=== PATIENT | female | born 1970 | race Caucasian/White ===

== ENCOUNTER → 2018-06-03 | Day surgery (SDC) | payer OTHER ==
[~2018-06-03] MED LIST: INCRUSE ELLI62.5 MCG INH; NORCO 5-325 TA1 EACH PO
--- NOTE | ~2018-06-03 | OP ---
[address] [address] OPERATIVE REPORT Name: KATIE JEFF Room: [facility]..#: [id number] Admission: 06/03/18 Attend Phys: Margi Coker MD Discharge: Date of : 68 Report #: [id number] THIS REPORT FOR: //name// CC: Margi Blanc DATE OF SERVICE: 06/03/2018 PREOPERATIVE DIAGNOSES: Biliary colic, cholelithiasis. POSTOPERATIVE DIAGNOSIS: Chronic cholecystitis. OPERATIVE PROCEDURE: Laparoscopic cholecystectomy. ANESTHESIA: General endotracheal with 0.5% Marcaine infiltrated in the wound site. OPERATIVE FINDINGS: Gallbladder with multiple stones and inflamed gallbladder wall. OPERATIVE PROCEDURE: The patient was placed under general endotracheal anesthesia, and the abdomen was prepped and draped in a sterile fashion. A timeout was taken. IV antibiotics administered. We began by infiltrating in the infraumbilical crease transversely with 0.5% Marcaine and made a transverse incision there with a #15 scalpel blade. The edges were then lifted up with 2 Adson forceps and cautery. It was used to dissect through the subcutaneous tissue down to the anterior abdominal wall. That abdominal wall was lifted with 2 Kochers and cleared with cautery and transected transversely with a #15 scalpel blade. Blunt dissection with a hemostat into the peritoneal cavity was accomplished without injury to underlying abdominal viscera. A 0 PDS was looped to the incision site and a size 12 applied medical Armand trocar was placed into the peritoneal cavity. Balloon deployed and secured at the skin. Insufflation with carbon dioxide to 5 L was completed, and a 5-mm 30-degree scope was inserted. The abdomen was inspected under direct visualization in the subcostal margin in the epigastric region, midclavicular and anterior axillary line. Infiltration with 0.5% Marcaine solution. Three small stab incisions in the upper abdomen and placed three bladeless applied, medical balloon deployed. Trocars were placed and secured at the skin. The patient then was placed in reverse Trendelenburg left lateral decubitus position, and the gallbladder was grasped with two vantage points and tented towards the diaphragm. A slow meticulous dissection at the base of the gallbladder carefully dissected out the cystic duct and cystic artery and placed 3 Hemoclips across both structures and divided it with laparoscopic scissors leaving 2 in the patient and 1 on the gallbladder. Handheld cautery was then used to dissect the gallbladder off the anterior surface of the liver. During the dissection, we got into the gallbladder wall and some mucinous bile was escaped [place] [address] OPERATIVE REPORT Name: KATIE JEFF Room: [facility] M.R.#: [id number] Admission: 06/03/18 Attend Phys: Margi Coker MD Discharge: Date of : 68 Report #: [id number] suction aspirator. Once the gallbladder was freed from its attachment, I changed the position of the camera to the epigastric port and through the umbilical port. An Endopouch was fed into the abdomen. The gallbladder placed in that pouch, and the pouch was closed. The pouch was fed up into the umbilical wound and retrieved without incident. I then inspected the right upper quadrant, irrigated and aspirated any free fluid at the base of the gallbladder. There was no bleeding and the clips remained in place. Pneumoperitoneum was released, and the patient was placed back in neutral position. After the trocars were all removed, the 0 PDS at the umbilical stalk was tied and infiltrated with 0.5% Marcaine and the remaining incisions were closed with buried 4-0 PDS sutures and sealed with Dermabond. ESTIMATED BLOOD LOSS: 5 mL. All sponge, instrument counts correct. SPECIMENS: Gallbladder to pathology. The patient was extubated and returned to recovery in stable condition. By: 1326 Lucila Coker MD /nt
--- NOTE | 2018-06-03 13:22 | H ---
[address] [address] HISTORY AND PHYSICAL Name: KATIE JEFF Room: [facility]..#: [id number] Admission: 06/03/18 Attend Phys: Margi Coker MD Discharge: Date of : 68 Report #: [id number] THIS REPORT FOR: //name// CC: Margi Blanc The patient to be treated on 06/03/2018. ADMITTING DIAGNOSIS: Symptomatic biliary colic. HISTORY OF PRESENT ILLNESS: The patient is a 48-year-old white female, who presented to the Emergency Department with complaints of right upper quadrant pain and chest pain. She was worked up for both entities and was found to have no cardiac disease, but on ultrasound, cholelithiasis. She was dismissed and referred for surgical management. PAST MEDICAL HISTORY: COPD. CURRENT MEDICATIONS: Includes Trelegy Ellipta inhalation. PAST SURGICAL HISTORY: Her surgical histories include 3 childbirths. ALLERGIES: She has no known drug allergies. SOCIAL HISTORY: She is current every day smoker. No history of excess alcohol or illegal drug use. FAMILY HISTORY: Noted for diabetes, high blood pressure. REVIEW OF SYSTEMS: She complained of abdominal pain, but no nausea or vomiting. She denied chest pain, cough or stridor. PHYSICAL EXAMINATION: GENERAL: She is a modestly well-developed female, sitting up, in no acute distress. HEAD, EARS, EYES, NOSE AND THROAT: Unremarkable. Sclerae are anicteric. NECK: Supple with no masses. LUNGS: Clear to auscultation. CARDIAC: Regular rate and rhythm without murmurs. ABDOMEN: Soft with no tenderness. Normal bowel sounds. EXTREMITIES: Noted no swelling or pitting edema. IMPRESSION AND PLAN: Symptomatic cholelithiasis. I have outlined laparoscopic [facility] [address] [place] [address] HISTORY AND PHYSICAL Name: KATIE JEFF Room: [facility] Jovany#: [id number] Admission: 06/03/18 Attend Phys: Margi Coker MD Discharge: Date of : 68 Report #: [id number] cholecystectomy, its risks and benefits and answered her questions. She understands and wishes to proceed. <ELECTRONICALLY SIGNED> By: Margi Coker MD 06/03/18 1322 1124 [id number] Coker MD /nt
--- NOTE | 2018-06-04 16:06 | PATH ---
[address] [address] PATHOLOGY RPT PROCEDURE Name: KATIE JEFF Room: [facility] M.Bubba.#: [id number] Admission: 06/03/18 Date of : 68 Discharge: Report #: [id number] Path Case #: [id number] [facility] Accession Number: [id number] . 01 Material submitted: . gallbladder - GALLBLADDER . 01 Clinical history: . Cholelithiasis . 02 Diagnosis: Gallbladder: - Chronic cholecystitis with mural fibrosis and cholelithiasis. (ALEJANDRO:marimar; 06/04/2018) MBR/06/04/2018 . 02 Electronically signed: . Сергей Perez MD, Pathologist NPI- [id number] . 01 Gross description: . The specimen is received in formalin, labeled "Katie Jeff, gallbladder", is an intact gallbladder measuring 8.5 x 2.2 x 1.7 cm with a glistening, smooth, hanna-brown serosa. The lumen is filled with hanna-pink viscous fluid. Within the gallbladder neck region there is an oval, irregularly surfaced dark green-yellow calculus measuring 2.4 x 1.2 x 1.0 cm. The gallbladder neck mucosa is effaced with the remaining hanna-pink showing a trabeculated mucosa. The wall is fibrous and has an average 0.3 cm thickness. No discrete masses are identified. C[employer] tissue is submitted in A1. (SWS; 06/03/2018) SHS/SHS . 02 Pathologist provided ICD-10: K80.10 . 02 CPT . 492027 Specimen Comment: A courtesy copy of this report has been sent to Specimen Comment: [phone], . Specimen Comment: Report sent to / DR BLANTON Performed at: [address], [place], [place] [id number] MD Tim Hummel MD Phone: [phone] Performed at: [address] [address] [address]ardo JiménezH[place], [place] [id number] MD Сергей Perez MD Phone: [phone]
== END | disposition home or self-care (01) ==
LOC: M.SUR 08:46
DX: K80.10 Calculus of gallbladder with chronic cholecystitis without obstruction (principal); K82.8 Other specified diseases of gallbladder; J44.9 Chronic obstructive pulmonary disease, unspecified; F17.210 Nicotine dependence, cigarettes, uncomplicated; Z98.890 Other specified postprocedural states; Z82.49 Family history of ischemic heart disease and other diseases of the circulatory system; Z83.3 Family history of diabetes mellitus; Z79.899 Other long term (current) drug therapy